=== PATIENT | female | born 1965 ===

== ENCOUNTER 2018-05-21 09:26 | Observation (INO) | payer OTHER ==
[2018-05-21] MEDS ORDERED: Sodium Chloride 0.9% 1,000 ML IV SCH (10:00)
--- NOTE | 2018-05-21 10:00 | CT ---
Date of service: 05/21/2018 PROCEDURE: CT HEAD WITHOUT CONTRAST. HISTORY: code stroke COMPARISON: None available. TECHNIQUE: Axial computed tomography images were obtained through the head/brain without intravenous contrast. Radiation dose: Total exam DLP = 797.79 mGy-cm. This CT exam was performed using one or more of the following dose reduction techniques: Automated exposure control, adjustment of the mA and/or kV according to patient size, and/or use of iterative reconstruction technique. FINDINGS: HEMORRHAGE: No intracranial hemorrhage. BRAIN: No gross mass effect or gross edema. No atrophy or chronic microvascular ischemic changes. VENTRICLES: Unremarkable. No hydrocephalus. CALVARIUM: Unremarkable. PARANASAL SINUSES: Unremarkable as visualized. No significant inflammatory changes. MASTOID AIR CELLS: Unremarkable as visualized. No inflammatory changes. OTHER FINDINGS: None. IMPRESSION: Normal CT of the Head. No intracranial hemorrhage or mass effect seen.
[2018-05-21 10:27] LABS: BASO % 0.4 % (0.0-2.0); EOS # 0.3 K/uL (0.0-0.7); HEMOGLOBIN 13.7 g/dL (12.0-16.0); LYMPH % 32.4 % (20.0-40.0); MEAN CELL VOLUME 86.9 fl (81.0-99.0); MEAN CORPUSCULAR HEMOGLOBIN 28.9 pg (27.0-31.0); MEAN CORPUSCULAR HGB CONC 33.3 g/dL (33.0-37.0); MEAN PLATELET VOLUME 10.8 fl (7.2-11.7); MONO # 0.5 K/uL (0.0-0.8); MONO % 8.1 % (0.0-10.0); NEUT # 3.3 K/uL (1.8-7.0); NEUT % 54.1 % (50.0-75.0); NRBC % 0.1 % (0.0-0.0); RBC 4.73 Mil/uL (3.80-5.20); RED CELL DISTRIBUTION WIDTH 13.3 % (11.5-14.5); WHITE BLOOD COUNT 6.1 K/uL (4.8-10.8)
[2018-05-21 10:35] LABS: ALB/GLOB RATIO 1.3 (1.0-2.1); ALBUMIN 4.5 g/dL (3.5-5.0); ALT/SGPT 30 U/L (9-52); AST/SGOT 26 U/L (14-36); BLOOD UREA NITROGEN 16 mg/dl (7-17); CALCIUM 9.7 mg/dL (8.4-10.2); GFR NON-AFRICAN AMERICAN > 60; HDL CHOLESTEROL 47 MG/DL (30-70)
[2018-05-21 10:37] LABS: PARTIAL THROMBOPLASTIN TIME 30.1 Seconds (25.6-37.1)
[2018-05-21 10:46] LABS: LDL CHOLESTEROL 140 mg/dL (0-129)
--- NOTE | 2018-05-21 10:50 | RAD ---
Date of service: 05/21/2018 HISTORY: Code Stroke COMPARISON: No prior. FINDINGS: LUNGS: No active pulmonary disease. PLEURA: No significant pleural effusion identified, no pneumothorax apparent. CARDIOVASCULAR: No aortic atherosclerotic calcification present. Normal cardiac size. No pulmonary vascular congestion. OSSEOUS STRUCTURES: No significant abnormalities. VISUALIZED UPPER ABDOMEN: Normal. OTHER FINDINGS: None. IMPRESSION: No active disease.
--- NOTE | 2018-05-21 12:06 | ED PDOC ---
HPI:STROKE - Time Time: 09:45 - Historian Historian: Patient, Family - Chief Complaint Chief Complaint: Confusion - Onset Date: 05/21/18 Time: 08:00 (awakening) - Location Location: Difficult to localize, Mental Status - Severity of pain Maximum severity:: Mild Severity Current: Mild (headache) - Exacerbated by Exacerbated by:: Nothing - Relieved by Relieved by:: Nothing - TPA Positive for Contraindication: Yes Reason tPA is not being Administered: awoke with symptoms thus >3hrs and NIHSS 0 - Notes: Notes:: 53yo female prior well states awoke this morning NIHSS Stroke Scale - Date/Time Evaluation Performed Date Performed: 05/21/18 Time Performed: 09:50 When Was NIHSS Performed: Baseline - How Severe is the Stroke Level of Consciousness: 0=Alert LOC to Questions: 0=Both comments correct LOC to commands: 0=Obeys both correctly Best Gaze: 0=Normal Visual: 0=No visual loss Facial: 0=Normal Motor Arm - Left: 0=No drift Motor Arm - Right: 0=No drift Motor Leg - Left: 0=No drift Motor Leg - Right: 0=No drift Limb Ataxia: 0=Absent Sensory: 0=Normal Best Language: 0=No aphasia Dysarthia: 0=Normal articulation Extinction & Inattention (Neglect): 0=Normal, no object Score: 0 rTPA Inclusion/Exclusion - Refusal of Treatment Patient Refused Treatment: No - Inclusion Criteria for Altepase Patient is 18 years or Older: Yes The Clinical Diagnosis of Ischemic Stroke That is Causing a Potentially Disabling Neurological Deficit: No Time of Onset is Well Established to be Less Than 270 Minute Before Treatment Would Begin: No Risk/Benefit Discussed With Patient/Family Member Present: No Past Medical History Reviewed: Historical Data, Nursing Documentation, Vital Signs Vital Signs: Last Vital Signs Temp 98.3 F 05/21/18 09:39 Pulse 86 05/21/18 09:39 Resp 20 05/21/18 09:39 BP 106/56 L 05/21/18 09:39 Pulse Ox 100 05/21/18 10:03 - Medical History PMH: No Chronic Diseases Other PMH: vertigo - Surgical History Surgical History: No Surg Hx - Family History Family History: States: Unknown Family Hx - Living Arrangements Living Arrangements: With Family - Social History Current smoker - smoking cessation education provided: No - Immunization History Hx Tetanus Toxoid Vaccination: No Hx Influenza Vaccination: No Hx Pneumococcal Vaccination: No - Home Medications Home Medications: Ambulatory Orders Medication Instructions Recorded No Known Home Med 05/21/18 - Allergies Allergies/Adverse Reactions: Allergies Allergy/AdvReac Type Severity Reaction Status Date / Time No Known Allergies Allergy Verified 05/21/18 09:39 Review of Systems Constitutional: Negative for: Fever Cardiovascular: Negative for: Chest Pain, Palpitations Respiratory: Negative for: Shortness of Breath Gastrointestinal: Negative for: Vomiting, Abdominal Pain Genitourinary Female: Negative for: Dysuria Musculoskeletal: Negative for: Neck Pain Neurological: Positive for: Confusion, Altered Mental Status. Negative for: Weakness, Numbness, Incoordination, Change in Speech, Headache, Dizziness Psych: Negative for: Suicidal ideation Physical Exam - Reviewed Nursing Documentation Reviewed: Yes Vital Signs Reviewed: Yes - Physical Exam Appears: Positive for: Well, Non-toxic, No Acute Distress Head Exam: Positive for: ATRAUMATIC, NORMAL INSPECTION, NORMOCEPHALIC Skin: Positive for: Normal Color, Warm, DRY Eye Exam: Positive for: EOMI, Normal appearance, PERRL ENT: Positive for: Normal ENT Inspection Neck: Positive for: Normal, Painless ROM Cardiovascular/Chest: Positive for: Regular Rate, Rhythm Respiratory: Positive for: CNT, Normal Breath Sounds Pulses-Radial (L): 3+/4+ Pulses-Radial (R): 3+/4+ Gastrointestinal/Abdominal: Positive for: Soft. 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 Negative for: Aphasia, Facial Droop - Laboratory Results Result Diagrams: 05/21/18 10:00 05/21/18 10:00 Lab Results: PT 11.0 Seconds (9.8-13.1) 05/21/18 10:00 INR 1.0 05/21/18 10:00 APTT 30.1 Seconds (25.6-37.1) 05/21/18 10:00 Troponin I < 0.0120 ng/mL (0.00-0.120) 05/21/18 10:00 Total Bilirubin 0.7 mg/dl (0.2-1.3) 05/21/18 10:00 AST 26 U/L (14-36) 05/21/18 10:00 ALT 30 U/L (9-52) 05/21/18 10:00 Alkaline Phosphatase 132 U/L (38-126) H 05/21/18 10:00 Total Protein 7.9 G/DL (6.3-8.2) 05/21/18 10:00 Albumin 4.5 g/dL (3.5-5.0) 05/21/18 10:00 Globulin 3.4 gm/dL (2.2-3.9) 05/21/18 10:00 Albumin/Globulin Ratio 1.3 (1.0-2.1) 05/21/18 10:00 - ECG O2 Sat by Pulse Oximetry: 100 Medical Decision Making Medical Decision Making: stroke pathway activated given AMS CT report and bloodwork reviewed D/w Dr Delcid neuro contact center manager recommends EEG and MRI for possible transient global amnesia vs partial seizure vs other Admit Dr Quinones ASA not given as unlikely to be acute CVA or ischemia as inciting event Disposition - Clinical Impression Clinical Impression: Transient global amnesia, Headache - Patient ED Disposition Is Patient to be Admitted: Yes Counseled Patient/Family Regarding: Studies Performed, Diagnosis, Need For Followup - Disposition Disposition Time: 11:55 Condition: FAIR - Pt Status Changed To: Hospital Disposition Of: Observation
--- NOTE | 2018-05-21 15:26 | MRI ---
Date of service: 05/21/2018 PROCEDURE: MRI BRAIN WITHOUT CONTRAST HISTORY: AMS, amnesia, no motor/sensor focal deficit COMPARISON: None available. TECHNIQUE: Multiplanar, multisequence MR images of the brain were obtained without intravenous contrast enhancement. FINDINGS: HEMORRHAGE: None DWI: No evidence of an acute or early subacute infarction. BRAIN PARENCHYMA: No mass effect or edema. No atrophy or chronic microvascular ischemic changes. VENTRICLES: Unremarkable. No hydrocephalus. CRANIUM: Unremarkable. ORBITS: Grossly unremarkable. PARANASAL SINUSES/MASTOIDS: Clear VASCULAR SYSTEM: Skull base flow voids intact. OTHER FINDINGS: None. IMPRESSION: Unremarkable non contrast enhanced MRI of the brain.
--- NOTE | 2018-05-21 18:37 | CP.PCM.CON ---
History of Present Illness - History of Present Illness History of Present Illness: Neurology Consultation Note: Mrs. Cortes is a 53-year-old woman with no significant past medical history who presented with confusion and disorientation. She was unable to recall events of the day and had difficulty recalling new information. This began to resolve shortly after presentation. MRI of the brain was normal. There was concern for complex partial seizures due to the initial severity of the confusion. EEG was ordered. Dr. Gant consulted neurology to assist with the management and care. Review of Systems - Review of Systems All systems: reviewed and no additional remarkable complaints except Past Patient History - Infectious Disease Hx of Infectious Diseases: None - Past Social History Smoking Status: Never Smoked - PSYCHIATRIC Hx Substance Use: No - SURGICAL HISTORY Hx Surgeries: Yes Hx Section: Yes (x2) - ANESTHESIA Hx Anesthesia: Yes Hx Anesthesia Reactions: No Meds Allergies/Adverse Reactions: Allergies Allergy/AdvReac Type Severity Reaction Status Date / Time No Known Allergies Allergy Verified 05/21/18 09:39 - Medications Medications: Current Medications Acetaminophen (Tylenol 325mg Tab) 650 mg PO Q4 PRN PRN Reason: Headache Atorvastatin Calcium (Lipitor) 10 mg PO DAILY JOE Sodium Chloride (Sodium Chloride 0.9%) 1,000 mls @ 100 mls/hr IV .Q10H JOE Last Admin: 05/21/18 11:41 Dose: 100 mls/hr Physical Exam - Constitutional Appears: Well - Head Exam Head Exam: ATRAUMATIC, NORMAL INSPECTION, NORMOCEPHALIC - Eye Exam Eye Exam: EOMI, Normal appearance, PERRL Pupil Exam: NORMAL ACCOMODATION, PERRL - ENT Exam ENT Exam: Mucous Membranes Moist, Normal Exam - Neck Exam Neck exam: Positive for: Normal Inspection - Respiratory Exam Respiratory Exam: Clear to Auscultation Bilateral, NORMAL BREATHING PATTERN - Cardiovascular Exam Cardiovascular Exam: REGULAR RHYTHM - GI/Abdominal Exam GI & Abdominal Exam: Normal Bowel Sounds, Soft. absent: Tenderness - Rectal Exam Rectal Exam: Deferred - Extremities Exam Extremities exam: Positive for: normal inspection - Back Exam Back exam: NORMAL INSPECTION - Neurological Exam Neurological exam: Alert, CN II-XII Intact, Normal Gait, Oriented x3, Reflexes Normal - Psychiatric Exam Psychiatric exam: Normal Affect, Normal Mood - Skin Skin Exam: Dry, Intact, Normal Color, Warm Results - Vital Signs Recent Vital Signs: Last Vital Signs Temp 98.3 F 05/21/18 09:39 Pulse 86 05/21/18 09:39 Resp 20 05/21/18 09:39 BP 106/56 L 05/21/18 09:39 Pulse Ox 100 05/21/18 18:27 - Labs Result Diagrams: 05/21/18 10:00 05/21/18 10:00 Labs: Laboratory Results - last 24 hr 05/21/18 05/21/18 05/21/18 09:46 10:00 10:00 WBC 6.1 RBC 4.73 Hgb 13.7 Hct 41.1 MCV 86.9 MCH 28.9 MCHC 33.3 RDW 13.3 Plt Count 168 MPV 10.8 Neut % (Auto) 54.1 Lymph % (Auto) 32.4 [place] % (Auto) 8.1 Eos % (Auto) 5.0 H Baso % (Auto) 0.4 Neut # (Auto) 3.3 Lymph # (Auto) 2.0 [place] # (Auto) 0.5 Eos # (Auto) 0.3 Baso # (Auto) 0.0 PT INR APTT Sodium 137 Potassium 3.8 Chloride 101 Carbon Dioxide 28 Anion Gap 12 BUN 16 Creatinine 0.9 Est GFR ( Amer) > 60 Est GFR (Non-Af Amer) > 60 POC Glucose (mg/dL) 115 H Random Glucose 113 H Hemoglobin A1c Calcium 9.7 Total Bilirubin 0.7 AST 26 ALT 30 Alkaline Phosphatase 132 H Troponin I < 0.0120 Total Protein 7.9 Albumin 4.5 Globulin 3.4 Albumin/Globulin Ratio 1.3 Triglycerides 181 H Cholesterol 233 H LDL Cholesterol Direct 140 H HDL Cholesterol 47 Blood Type Antibody Screen BBK History Checked 05/21/18 05/21/18 05/21/18 10:00 10:00 10:00 WBC RBC Hgb Hct MCV MCH MCHC RDW Plt Count MPV Neut % (Auto) Lymph % (Auto) [place] % (Auto) Eos % (Auto) Baso % (Auto) Neut # (Auto) Lymph # (Auto) [place] # (Auto) Eos # (Auto) Baso # (Auto) PT 11.0 INR 1.0 APTT 30.1 Sodium Potassium Chloride Carbon Dioxide Anion Gap BUN Creatinine Est GFR ( Amer) Est GFR (Non-Af Amer) POC Glucose (mg/dL) Random Glucose Hemoglobin A1c 5.7 Calcium Total Bilirubin AST ALT Alkaline Phosphatase Troponin I Total Protein Albumin Globulin Albumin/Globulin Ratio Triglycerides Cholesterol LDL Cholesterol Direct HDL Cholesterol Blood Type A POSITIVE Antibody Screen Negative BBK History Checked No verified bt Assessment & Plan (1) Transient global amnesia Assessment and Plan: The patient appears to be back to baseline now. EEG can be done prior to discharge or as an outpatient to evaluate further. No other recommendations at this time. Thank you for this consultation. Status: Acute
--- NOTE | 2018-05-21 20:41 | CARD ---
APPROVED REPORT Date of service: 05/21/2018 EKG Measurement Heart [id number] <Conclusion> Normal sinus rhythm Minimal voltage criteria for LVH, may be normal variant Borderline ECG
--- NOTE | 2018-05-21 20:44 | HP ---
HISTORY OF PRESENT ILLNESS: Ms. Cortes is a 53-year-old female who was admitted via the emergency room because of sudden onset of confusion on the day of admission associated with forgetfulness and inability to remember simple events. She states she thought she was in some kind of movie and was reenacting events that just did not make any sense. When she showed up in the emergency room, she was not able to remember simple events including who the president of [facility] is. She had a workup which apparently has been noncontributory. PAST MEDICAL HISTORY: Unremarkable. FAMILY HISTORY: Noncontributory except for mother who has diabetes and gangrene of a great toe. SOCIAL HISTORY: Unremarkable including no history of smoking, drug use or alcohol use and lives at home with her . REVIEW OF SYSTEMS: Essentially unremarkable. PHYSICAL EXAMINATION: GENERAL: The patient is alert and oriented at present to person, place and time; confusion seems to have resolved. VITAL SIGNS: Blood pressure of 106/56, pulse of 86, respiratory rate 20. She is febrile. O2 sat 100% on room air. SKIN: Shows fair turgor. HEENT: Pupils are reactive to light and accommodation. Mouth shows fair hygiene. JVP flat. LUNGS: Clear. HEART: Regular. No murmurs or gallops. CHEST: Normal. ABDOMEN: Soft, nontender. No organomegaly. EXTREMITIES: Show no edema or cyanosis. CENTRAL NERVOUS SYSTEM: Grossly intact. LABORATORY DATA: WBC 6.1, hemoglobin 13.7, platelet count 168,000. Sodium 137, potassium 3.8, BUN of 16, creatinine 0.9, serum glucose 113. CT scan of the brain, no abnormalities noted. MRI of the brain also unremarkable. IMPRESSION: Transient global amnesia, etiology to be determined. PLAN: To monitor the patient in telemetry for the next 24 hours. Obtain EEG in the morning. If clinical condition resolves and if EEGs are normal, we will discharge him and follow up as an outpatient. Bryan Quinones MD
[2018-05-22 08:07] VITALS: RESP 19; O2SAT 98
[2018-05-22 12:22] VITALS: PULSE 78
--- NOTE | 2018-05-22 12:55 | CP.PCM.DIS ---
Provider - Provider Date of Admission: 05/21/18 12:08 Attending physician: Bryan Kong MD Consults: 05/21/18 09:46 Stroke Team Consult Stat Comment: Consulting Provider: Neurohospitalist Consulting Physician: NEUROHOSP Neurohospitalist for Consult: Thomas Delcid Neurohospitalist for Consult: Rachel Howard Reason for Consult: AMS Time Spent in preparation of Discharge (in minutes): 30 Diagnosis - Discharge Diagnosis (1) Transient global amnesia Status: Acute Hospital Course - Lab Results Lab Results: Most Recent Lab Values WBC 6.1 K/uL (4.8-10.8) 05/21/18 10:00 RBC 4.73 Mil/uL (3.80-5.20) 05/21/18 10:00 Hgb 13.7 g/dL (12.0-16.0) 05/21/18 10:00 Hct 41.1 % (34.0-47.0) 05/21/18 10:00 MCV 86.9 fl (81.0-99.0) 05/21/18 10:00 MCH 28.9 pg (27.0-31.0) 05/21/18 10:00 MCHC 33.3 g/dL (33.0-37.0) 05/21/18 10:00 RDW 13.3 % (11.5-14.5) 05/21/18 10:00 Plt Count 168 K/uL (130-400) 05/21/18 10:00 MPV 10.8 fl (7.2-11.7) 05/21/18 10:00 Neut % (Auto) 54.1 % (50.0-75.0) 05/21/18 10:00 Lymph % (Auto) 32.4 % (20.0-40.0) 05/21/18 10:00 [place] % (Auto) 8.1 % (0.0-10.0) 05/21/18 10:00 Eos % (Auto) 5.0 % (0.0-4.0) H 05/21/18 10:00 Baso % (Auto) 0.4 % (0.0-2.0) 05/21/18 10:00 Neut # (Auto) 3.3 K/uL (1.8-7.0) 05/21/18 10:00 Lymph # (Auto) 2.0 K/uL (1.0-4.3) 05/21/18 10:00 [place] # (Auto) 0.5 K/uL (0.0-0.8) 05/21/18 10:00 Eos # (Auto) 0.3 K/uL (0.0-0.7) 05/21/18 10:00 Baso # (Auto) 0.0 K/uL (0.0-0.2) 05/21/18 10:00 PT 11.0 Seconds (9.8-13.1) 05/21/18 10:00 INR 1.0 05/21/18 10:00 APTT 30.1 Seconds (25.6-37.1) 05/21/18 10:00 Sodium 137 mmol/l (132-148) 05/21/18 10:00 Potassium 3.8 MMOL/L (3.6-5.0) 05/21/18 10:00 Chloride 101 mmol/L (98-107) 05/21/18 10:00 Carbon Dioxide 28 mmol/L (22-30) 05/21/18 10:00 Anion Gap 12 (10-20) 05/21/18 10:00 BUN 16 mg/dl (7-17) 05/21/18 10:00 Creatinine 0.9 mg/dl (0.7-1.2) 05/21/18 10:00 Est GFR ( Amer) > 60 05/21/18 10:00 Est GFR (Non-Af Amer) > 60 05/21/18 10:00 POC Glucose (mg/dL) 115 mg/dL (65-110) H 05/21/18 09:46 Random Glucose 113 mg/dL (65-105) H 05/21/18 10:00 Hemoglobin A1c 5.7 % (4.2-6.5) 05/21/18 10:00 Calcium 9.7 mg/dL (8.4-10.2) 05/21/18 10:00 Total Bilirubin 0.7 mg/dl (0.2-1.3) 05/21/18 10:00 AST 26 U/L (14-36) 05/21/18 10:00 ALT 30 U/L (9-52) 05/21/18 10:00 Alkaline Phosphatase 132 U/L (38-126) H 05/21/18 10:00 Troponin I < 0.0120 ng/mL (0.00-0.120) 05/21/18 10:00 Total Protein 7.9 G/DL (6.3-8.2) 05/21/18 10:00 Albumin 4.5 g/dL (3.5-5.0) 05/21/18 10:00 Globulin 3.4 gm/dL (2.2-3.9) 05/21/18 10:00 Albumin/Globulin Ratio 1.3 (1.0-2.1) 05/21/18 10:00 Triglycerides 181 mg/DL (0-149) H 05/21/18 10:00 Cholesterol 233 mg/dL (0-199) H 05/21/18 10:00 LDL Cholesterol Direct 140 mg/dL (0-129) H 05/21/18 10:00 HDL Cholesterol 47 MG/DL (30-70) 05/21/18 10:00 Blood Type A POSITIVE 05/21/18 10:00 Antibody Screen Negative 05/21/18 10:00 BBK History Checked No verified bt 05/21/18 10:00 - Hospital Course Hospital Course: CLINICALLY IMPROVED NO NEURO DEFICITS ALERT AND ORIENTED X 3 Discharge Exam - Head Exam Head Exam: ATRAUMATIC, NORMAL INSPECTION, NORMOCEPHALIC - Eye Exam Eye Exam: EOMI, Normal appearance, PERRL Pupil Exam: NORMAL ACCOMODATION, PERRL - GI/Abdominal Exam GI & Abdominal Exam: Normal Bowel Sounds - Rectal Exam Rectal Exam: NORMAL INSPECTION - Neurological Exam Neurological exam: Alert, CN II-XII Intact, Normal Gait, Oriented x3, Reflexes Normal - Psychiatric Exam Psychiatric exam: Normal Affect, Normal Mood - Skin Skin Exam: Dry, Intact, Normal Color, Warm Discharge Plan - Follow Up Plan Condition: FAIR Disposition: HOME/ ROUTINE Additional Instructions: D/C HOME FOLLOW UP WITH DR KONG IN 2 WEEKS
[2018-05-22 13:12] VITALS: BP 128/76; TEMP 97.6
== END 2018-05-22 14:09 | disposition home or self-care (01) ==
LOC: H.ER 09:26 → H.ERHOLD 12:08
PROVIDERS: ADMIT Internal Medicine Pulmonary Disease; ATTEND Internal Medicine Pulmonary Disease
DX: G45.4 Transient global amnesia (principal); R51 Headache
CPT/HCPCS: 70450; 70551; 71045; 80053; 80061; 81025; 82948; 83036; 84484; 85025; 85610; 85730; 86850; 86900; 93005; 99285; G0378; J7030